=== PATIENT | female | born 1960 | race Caucasian/White ===

== ENCOUNTER → 2020-08-31 | Outpatient (CLI) | payer MEDICARE ==
--- NOTE | 2020-09-02 09:12 | MR ---
MR brain without contrast HISTORY: Tremor, Parkinson's disease, R 25.1 Multiplanar multisequence imaging obtained through the brain No comparisons There is no restricted diffusion. There is no hemorrhage or hydrocephalus. Confluent and scattered hy perintensities are present in the periventricular, pericallosal, subcortical white matter, greater th an 50 lesions are present. There are normal vascular flow voids. Orbits show symmetric appearance. Th e corpus callosum, pituitary, cervical medullary junction, cerebellopontine angles are unremarkable. Mild mucosal thickening present within the maxillary sinuses, ethmoid air cells. 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 IMPRESSION: Age-related changes of atrophy and nonspecific white matter demyelination, differential i ncludes vasculitis, chronic small vessel ischemic changes, hypertension, multiple sclerosis in the ap propriate clinical setting.
== END | disposition home or self-care (01) ==
LOC: RADMRIMAIN 12:16
PROVIDERS: ATTEND Family Medicine
DX: G31.1 Senile degeneration of brain, not elsewhere classified (principal); G37.9 Demyelinating disease of central nervous system, unspecified
CPT/HCPCS: 70551